=== PATIENT | female | born 1930 | race Caucasian/White ===

== ENCOUNTER 2016-09-10 08:08 | Emergency (ER) | payer MEDICARE, OTHER ==
[~2016-09-10] VITALS: Ht 162.6 cm; Wt 70.0 kg
[~2016-09-10 08:08] MED LIST: AMBIEN CR12.5 MG OR; AMLODIPINE2.5 MG PO; CRESTOR10 MG OR; CYMBALTA60 MG OR; FLEXERIL OR; LOPRESSOR50 MG OR; NEXIUM40 M1 OR; PROCRIT2000 MG/ML IJ; TRAMADOL HCL50 MG OR; TRAZODONE50 MG PO; XARELTO10 MG PO
[2016-09-10] MEDS ORDERED: TRAZODONE100 MG PO (08:34)
[2016-09-10] MEDS ORDERED: FLEXERIL PO (09:54)
[2016-09-10] MEDS ORDERED: ULTRAM50 M1 PO (09:54)
[2016-09-10 10:11] VITALS: BP 156/67
== END 2016-09-10 10:11 | disposition home or self-care (01) ==
LOC: ED 08:08
DX: S16.1XXA Strain of muscle, fascia and tendon at neck level, initial encounter (principal); M47.812 Spondylosis without myelopathy or radiculopathy, cervical region; R51 Headache

== ENCOUNTER 2017-07-13 11:47 | Day surgery (SDC) | payer MEDICARE, OTHER ==
[~2017-07-13] VITALS: Ht 162.6 cm; Wt 72.6 kg
[~2017-07-13 11:47] MED LIST changes: +AMITRIPTYLIN25 MG PO; +COQ10100 MG PO; +CYCLOBENZAPR10 MG PO; +ESCITALOPRAM OX10 MG PO; +FLEXERIL PO; +FLONASE AL50 MCG/ACT; +HYDROCO/APAP1 TA9 PO; +RANITIDINE150 M1 PO; +TIZANIDINE HCL2 MG PO; +TRAZODONE100 MG PO; +ULTRAM50 M1 PO
[2017-07-13 15:19] VITALS: BP 145/67
== END 2017-07-13 15:25 | disposition home or self-care (01) ==
LOC: ENDO 11:47 → ORM 14:30 → ENDO 14:30
PROVIDERS: ATTEND Internal Medicine Gastroenterology
PROC: 0DB58ZX Excision of Esophagus, Via Natural or Artificial Opening Endoscopic, Diagnostic (ICD-10-PCS; principal; 2017-07-13)
DX: K22.70 Barrett's esophagus without dysplasia (principal); K21.9 Gastro-esophageal reflux disease without esophagitis; R10.13 Epigastric pain; R10.11 Right upper quadrant pain; D50.9 Iron deficiency anemia, unspecified; K29.70 Gastritis, unspecified, without bleeding; K31.9 Disease of stomach and duodenum, unspecified; K44.9 Diaphragmatic hernia without obstruction or gangrene; K31.7 Polyp of stomach and duodenum; R79.89 Other specified abnormal findings of blood chemistry; K59.00 Constipation, unspecified; Z86.010 Personal history of colon polyps; E78.00 Pure hypercholesterolemia, unspecified; Z86.73 Personal history of transient ischemic attack (TIA), and cerebral infarction without residual deficits; Z86.718 Personal history of other venous thrombosis and embolism